=== PATIENT | female | born 2000 | race Two or more races ===

== ENCOUNTER 2024-09-17 02:10 | Emergency (ER) | payer MEDICAID, OTHER ==
[~2024-09-17] VITALS: Ht 160 cm; Wt 58.0 kg
[2024-09-17] MEDS: clonazePAM 0.5 MG TAB PO ONE (03:29)
[2024-09-17] MEDS: ONDANSETRON ODT 4 MG TAB PO ONE (03:54)
[2024-09-17] MEDS: DICYCLOMINE HCL (10MG/ML) 2 ML AMPULE IM ONE (04:16)
--- NOTE | 2024-09-17 04:38 | ED.PDOC ---
Psychiatric HPI Comments This is a 24-year-old female presents to the ED with panic attack status post eating a marijuana edible. She had notable around 1 hour ago and since has been having high anxiety. vomiting x3. Denies chest pain, difficulty breathing, shortness of breath, diarrhea, fever chills. Chief Complaint: Anxiety Time Seen by MD: 02:29 Reviewed Notes: Nurses Notes (x), Medications, Allergies Mode of Arrival: Ambulatory Past Medical History PAST MEDICAL HISTORY: Denies Surgical History: Denies all surgeries PALLIATIVE CARE PHYSICIAN History: No Pertinent PALLIATIVE CARE PHYSICIAN History Family History Family History: Reviewed,noncontributory to illness Social History Smoker: Non-Smoker Alcohol: Denies ETOH Use Drugs: Marijuana Constitutional: denies: chills, diaphoresis, fatigue, fever, malaise, sweats, weakness, others EENTM: denies: blurred vision, double vision, ear bleeding, ear discharge, ear drainage, ear pain, ear ringing, eye pain, eye redness, hearing loss, mouth pain, mouth swelling, nasal discharge, nose bleeding, nose congestion, nose pain, photophobia, tearing, throat pain, throat swelling, voice changes, others Respiratory: denies: cough, hemoptysis, orthopnea, SOB at rest, shortness of breath, SOB with excertion, stridor, wheezing, others Cardiovascular: denies: chest pain, dizzy spells, diaphoresis, Dyspnea on exertion, edema, irregular heart beat, left arm pain, lightheadedness, pa lpitations, PND, syncope, others Gastrointestinal: reports: nausea, vomiting; denies: abdomen distended, abdominal pain, blood streaked bowels, constipated, diarrhea, dysphagia, difficulty swallowing, hematemesis, melena, poor appetite, poor fluid intake, rectal bleeding, rectal pain, others Genitourinary: denies: abnormal vagina bleeding, burning, dyspareunia, dysuria, flank pain, frequency, hematuria, incontinence, pain, , vagina discharge, urgency, others Neurological: denies: dizziness, fainting, headache, left sided numbness, left sided weakness, numbness, paresthesia, pre-existing deficit, right sided numbness, right sided weakness, seizure, speech problems, tingling, tremors, weakness, others Musculoskeletal: denies: back pain, gout, joint pain, joint swelling, muscle pain, muscle stiffness, neck pain, others Integumetry: denies: bruises, change in color, change in hair/nails, dryness, laceration, lesions, lumps, rash, wounds, others Allergic/Immunocompromised: denies: Difficulty Healing, Frequent Infections, Hives, Itching, others Hematologic/Lymphatic: denies: anemia, blood clots, easy bleeding, easy bruising, swollen glands, others Endocrine: denies: excessive hunger, excessive sweating, excessive thirst, excessive urination, flushing, intolerance to cold, intolerance to heat, un explained weight gain, unexplained weight loss, others Psychiatric: reports: anxiety; denies: bipolar disorder, depression, hopeless, panic disorder, schizophrenia, sleepless, suicidal, others Physical Exam General Appearance: No Apparent Distress, Normal HEENT: Normal ENT Inspection, Pharynx Normal, TMs Normal Neck: Full Range of Motion, Non-Tender, Normal, Normal Inspection Respiratory: Chest Non-Tender, Lungs Clear, No Accessory Muscle Use, No Respiratory Distress, Normal Breath Sounds Cardiovascular: No Edema, No JVD, No Murmur, No Gallop, Normal Peripheral Pulses, Regular Rate/Rhythm Breast Exam: Deferred Gastrointestinal: No Organomegaly, Non Tender, No Pulsatile Mass, Normal Bowel Sounds, Soft Genitalia: Deferred Pelvic: Deferred Rectal: Deferred Extremities: Normal capillary refill, Normal inspection, Normal range of motion, Non-tender, No pedal edema Musculoskeletal : Apperance: Normal Neurologic: Alert, bean picker machine operator II-XII nml as Tested, No Motor Deficits, Normal Affect, Normal Mood, No Sensory Deficits Cerebellar Function: Normal Reflexes: Normal Skin: Dry, Normal Color, Warm Lymphatic: No Adenopathy Was a procedure done? Was a procedure done?: No Psych Differential Dx Psych. Differential Dx: Anxiety OD Differential Dx: Delirium X-Ray, Labs, Meds, VS Vital Signs Date Time Temp Pulse Resp B/P (MAP) Pulse Ox O2 Delivery O2 Flow Rate FiO2 09/17/24 04:39 97.4 98 19 107/67 (80) 100 97.4 09/17/24 03:19 82 22 99 Room Air 09/17/24 02:24 97.7 82 22 130/70 (90) 99 09/17/24 02:24 22 99 Room Air* 0 21 X-Ray, Labs, Meds, VS Comment Patient given Klonopin, reports improvement in symptoms requesting discharge at this time. Advised her to avoid marijuana edibles. Advised her to increase her p.o. fluids with electrolytes. Pseudo follow up with her PCP in 2-3 days as necessary patient indicated understanding and agrees with discharge plan of care. Time of 1ST Reevaluation: 04:37 Reevaluation 1ST: Improved Patient Education/Counseling: Diagnosis, Treatment, Prognosis, Need For Follow Up Family Education/Counseling: Diagnosis, Treatment, Prognosis, Need For Follow Up Departure 1 Departure Time of Disposition: 04:37 Impression: Primary Impression: Cannabis-induced anxiety disorder Disposition: 01 HOME / SELF CARE / HOMELESS Condition: Stable Discharged With: Other (Sibling) Critical Care Note Critical Care Time?: No Stability Stability form required: EDI Louise Sep 17, 2024 04:38
[2024-09-17 04:39] VITALS: BP 107/67; PULSE 98; RESP 19; TEMP 97.4; O2SAT 100
== END 2024-09-17 04:43 | disposition home or self-care (01) ==
LOC: ER 02:10
DX: F12.980 Cannabis use, unspecified with anxiety disorder (principal); R11.10 Vomiting, unspecified
CPT/HCPCS: 96372; 99283; J0500; Q0162